=== PATIENT | female | born 1965 | race Hispanic/Latino ===

== ENCOUNTER 2017-12-03 07:29 | Observation (INO) | payer OTHER ==
[2017-12-01 14:00] VITALS: BP 102/65
[2017-12-01 14:17] LABS: BASOPHILS % (AUTO) 0.7 % (0.0-5.0); EOSINOPHILS % (AUTO) 3.1 % (0.0-8.0); HEMATOCRIT 34.5 % (36-48); LYMPHOCYTES % (AUTO) 18.5 % (21.0-51.0); MEAN CORPUSCULAR VOLUME 71.7 fL (79-99); NEUTROPHILS % (AUTO) 69.7 % (40.0-77.0); PLATELET COUNT (AUTO) 351 K/uL (130-400); RED BLOOD CELL COUNT(AUTO) 4.81 MIL/uL (4.00-5.50); RED CELL DISTRIBUTION WIDTH 17.1 % (11.0-15.5); WHITE BLOOD COUNT (AUTO) 7.6 K/uL (4.8-10.8)
[2017-12-01 14:24] LABS: APPEARANCE,URINE Clear (CLEAR); BILIRUBIN,URINE Negative (NEGATIVE); COLOR,URINE Yellow (YELLOW); GLUCOSE, URINE (UA) Negative (NEGATIVE); KETONES,URINE Negative (NEGATIVE); LEUKOCYTE ESTERASE ,URINE Negative (NEGATIVE); NITRATE,URINE Negative (NEGATIVE); OCCULT BLOOD,URINE Moderate (NEGATIVE); PH,URINE 6.5 (5.0-8.0); PROTEIN,URINE Negative (NEGATIVE); UROBILINOGEN,URINE 0.2 mg/dL (0.2-1.0)
[2017-12-01 14:34] LABS: ALBUMIN 3.7 g/dL (3.5-5.0); BILIRUBIN,DIRECT 0.1 mg/dL (0.0-0.3); BILIRUBIN,TOTAL 0.2 mg/dL (0.2-1.0); CREATININE 0.7 mg/dL (0.5-1.5); POTASSIUM 3.7 mmol/L (3.5-5.1); TOTAL PROTEIN, SERUM 7.8 g/dL (6.0-8.3)
[2017-12-01 15:25] LABS: BACTERIA,URINE Rare /HPF (None Seen); SQUAMOUS EPITHELIAL CELL,UR Few /HPF (0-2); WBC,URINE 0-1 /HPF (0-1)
[2017-12-03] VITALS (23 sets, daily range): BP systolic 99–147; BP diastolic 57–93
[~2017-12-03] VITALS: Ht 154.9 cm; Wt 72.4 kg
[~2017-12-03 07:29] MED LIST: ATOR20TA65 PO; CEFAZOLIN SODIUM 1 GM VIAL IVP SCH; DOCU-272 PO; OMEP20TA25 PO; SERT100T12 PO; TRAZ-187 PO
[2017-12-03] MEDS ORDERED: LACTATED RINGERS 1000ML 0 ML IV ONE (08:21)
[2017-12-03] MEDS ORDERED: SODIUM CHLORIDE 0.9% 1000ML 1,000 ML IV ONE (08:21)
[2017-12-03] MEDS ORDERED: FENTANYL CITRATE PF 50 MCG/1 ML 2ML VIAL ONE ×2 (09:25→10:22)
[2017-12-03] MEDS ORDERED: MIDAZOLAM HCL 1 MG/ML 2ML VIAL ONE (09:25)
[2017-12-03] MEDS ORDERED: PROPOFOL 10 MG/ML 20ML VIAL IV ONE (09:25)
[2017-12-03] MEDS ORDERED: ONDANSETRON HCL 4 MG/2 ML VIAL ONE (09:27)
[2017-12-03] MEDS ORDERED: ROCURONIUM BROMIDE 10MG/1ML 5ML VL ONE (09:27)
[2017-12-03] MEDS ORDERED: NEOSTIGMINE 5MG/5ML SYR IV ONE (09:27)
[2017-12-03] MEDS ORDERED: LIDOCAINE PF 2% 5ML ABBOJECT ONE (09:27)
[2017-12-03] MEDS ORDERED: GLYCOPYRROLATE 0.2 MG/ML 5 ML VIAL ONE (09:27)
[2017-12-03] MEDS ORDERED: DEXAMETHASONE SOD PHOSPHATE 4 MG/ML 1ML VIAL ONE (10:22)
[2017-12-03] MEDS ORDERED: MEPERIDINE-PF 50 MG/ML SYG ONE (10:56)
[2017-12-03] MEDS ORDERED: KETOROLAC TROMETHAMINE 30MG/ML ONE (11:22)
[2017-12-03] MEDS ORDERED: ACETAMINOPHEN 325 MG TAB PO PRN (15:45)
[2017-12-03] MEDS ORDERED: ACETAMINOPHEN-CODEINE 300/30MG TAB PO PRN (19:45)
[2017-12-03] MEDS ORDERED: TRAZODONE HCL 100 MG TABLET PO SCH (21:00)
[2017-12-03] MEDS ORDERED: ATORVASTATIN CALCIUM 20 MG TABLET PO SCH (21:00)
[2017-12-03] MEDS ORDERED: SERTRALINE HCL 50 MG TABLET PO SCH (21:00)
[2017-12-03] MEDS: DOCUSATE SODIUM 100 MG CAP PO SCH (21:32)
[2017-12-03] MEDS: ACETAMINOPHEN-CODEINE 300/30MG TAB PO PRN (21:43)
[2017-12-04 00:50] VITALS: BP 98/58
[2017-12-04 03:50] VITALS: BP 101/59
[2017-12-04 04:52] LABS: BASOPHILS % (AUTO) 0.2 % (0.0-5.0); EOSINOPHILS % (AUTO) 0.6 % (0.0-8.0); HEMATOCRIT 28.2 % (36-48); LYMPHOCYTES % (AUTO) 16.6 % (21.0-51.0); MEAN CORPUSCULAR HEMOGLOBIN 23.8 pg (27.0-33.0); MEAN CORPUSCULAR HGB CONC 33.1 g/dL (32.0-36.0); MEAN CORPUSCULAR VOLUME 71.8 fL (79-99); MONOCYTES % (AUTO) 9.8 % (3.0-13.0); NEUTROPHILS % (AUTO) 72.8 % (40.0-77.0); PLATELET COUNT (AUTO) 312 K/uL (130-400); RED BLOOD CELL COUNT(AUTO) 3.93 MIL/uL (4.00-5.50); RED CELL DISTRIBUTION WIDTH 17.2 % (11.0-15.5); WHITE BLOOD COUNT (AUTO) 10.2 K/uL (4.8-10.8)
[2017-12-04 05:10] LABS: CREATININE 0.7 mg/dL (0.5-1.5); POTASSIUM 3.5 mmol/L (3.5-5.1)
[2017-12-04 08:19] VITALS: BP 100/60
[2017-12-04] MEDS ORDERED: PANTOPRAZOLE SODIUM 40 MG TABLET.DR PO SCH (09:00)
[2017-12-04] MEDS: ACETAMINOPHEN-CODEINE 300/30MG TAB PO PRN ×2 (10:10→17:52)
[2017-12-04] MEDS: DOCUSATE SODIUM 100 MG CAP PO SCH (10:10)
[2017-12-04 11:47] VITALS: BP 101/66
[2017-12-04 15:59] VITALS: BP 116/60
== END 2017-12-04 18:14 | disposition home or self-care (01) ==
LOC: DAH 07:29 → DAHIP 07:30 → 3DH 17:15
PROVIDERS: ADMIT Internal Medicine Nephrology; ATTEND Internal Medicine Nephrology
DX: R41.82 Altered mental status, unspecified (principal); K80.10 Calculus of gallbladder with chronic cholecystitis without obstruction; K21.9 Gastro-esophageal reflux disease without esophagitis; E78.5 Hyperlipidemia, unspecified; E66.9 Obesity, unspecified; F41.9 Anxiety disorder, unspecified; G47.00 Insomnia, unspecified; Z83.3 Family history of diabetes mellitus; Z82.49 Family history of ischemic heart disease and other diseases of the circulatory system; Z98.51 Tubal ligation status
CPT/HCPCS: 36415 ×2; 47562; 70450; 80048 ×2; 80076; 81001; 82948 ×7; 84484; 85025 ×2; 88304; 93005; A4450; A4600; A4649; A4930 ×2; C1769 ×4; G0378 ×35; J1100; J1885; J2001; J2175; J2250; J2405; J2704; J2710; J3010 ×2; J3490 ×2; J7030 ×2; J7120

== ENCOUNTER 2018-03-23 14:37 | Emergency (ER) | payer OTHER ==
[~2018-03-23 14:37] MED LIST changes: -CEFAZOLIN SODIUM 1 GM VIAL IVP SCH
[2018-03-23 15:11] LABS: BASOPHILS % (AUTO) 0.3 % (0.0-5.0); EOSINOPHILS % (AUTO) 0.6 % (0.0-8.0); HEMATOCRIT 40.1 % (36-48); MEAN CORPUSCULAR HEMOGLOBIN 25.9 pg (27.0-33.0); MEAN CORPUSCULAR HGB CONC 32.1 g/dL (32.0-36.0); MEAN CORPUSCULAR VOLUME 80.8 fL (79-99); MONOCYTES % (AUTO) 5.9 % (3.0-13.0); NEUTROPHILS % (AUTO) 87.2 % (40.0-77.0); PLATELET COUNT (AUTO) 254 K/uL (130-400); RED BLOOD CELL COUNT(AUTO) 4.97 MIL/uL (4.00-5.50); RED CELL DISTRIBUTION WIDTH 17.4 % (11.0-15.5); WHITE BLOOD COUNT (AUTO) 16.3 K/uL (4.8-10.8)
[2018-03-23] MEDS ORDERED: SODIUM CHLORIDE 0.9% 1000ML 1,000 ML IV ONE (15:11)
[2018-03-23 15:15] LABS: APPEARANCE,URINE Clear (CLEAR); BILIRUBIN,URINE Negative (NEGATIVE); COLOR,URINE Yellow (YELLOW); GLUCOSE, URINE (UA) Negative (NEGATIVE); KETONES,URINE Negative (NEGATIVE); LEUKOCYTE ESTERASE ,URINE Moderate (NEGATIVE); NITRATE,URINE Negative (NEGATIVE); OCCULT BLOOD,URINE Moderate (NEGATIVE); PH,URINE 6.5 (5.0-8.0); PROTEIN,URINE POS 2+ (NEGATIVE)
[2018-03-23 15:21] LABS: HCG,QUAL RESULT NEGATIVE (NEGATIVE)
[2018-03-23 15:25] LABS: CREATININE 0.8 mg/dL (0.5-1.5); POTASSIUM 3.7 mmol/L (3.5-5.1)
[2018-03-23 15:25] LABS: BACTERIA,URINE Few /HPF (None Seen); MUCUS,URINE Rare LPF (None Seen); SQUAMOUS EPITHELIAL CELL,UR Few /HPF (0-2)
[2018-03-23 15:29] LABS: ALBUMIN 3.6 g/dL (3.5-5.0); BILIRUBIN,TOTAL 0.2 mg/dL (0.2-1.0); TOTAL PROTEIN, SERUM 7.9 g/dL (6.0-8.3)
[2018-03-23] MEDS ORDERED: MORPHINE SULFATE 2 MG/ML 1ML SYG ONE (15:51)
[2018-03-23] MEDS ORDERED: IOHEXOL-350 75 ML VIAL IV ONE (15:55)
[2018-03-23] MEDS ORDERED: CEFTRIAXONE SODIUM 1 GM ONE (17:20)
[2018-03-23] MEDS ORDERED: SODIUM CHLORIDE 0.9% 50 ML IV ONE (17:20)
== END 2018-03-23 18:08 | disposition home or self-care (01) ==
LOC: EDH 14:37
DX: N10 Acute pyelonephritis (principal); N84.0 Polyp of corpus uteri; E78.5 Hyperlipidemia, unspecified; G47.00 Insomnia, unspecified; F32.9 Major depressive disorder, single episode, unspecified; Z90.49 Acquired absence of other specified parts of digestive tract
CPT/HCPCS: 36415; 74177; 76856; 80053; 81001; 81025; 82150; 83690; 85025; 96374; 96375; 99285; J0696; J7030; Q9967

== ENCOUNTER → 2023-11-19 | Outpatient (CLI) | payer OTHER ==
[~2023-11-19] MED LIST changes: -DOCU-272 PO; +DOCU-280 PO; +OMEP20TA20 PO; -OMEP20TA25 PO; +SERT-440 PO; -SERT100T12 PO
== END | disposition home or self-care (01) ==
LOC: OIH 09:22
PROVIDERS: ATTEND Internal Medicine Cardiovascular Disease
DX: Z13.6 Encounter for screening for cardiovascular disorders (principal)
CPT/HCPCS: 75571